=== PATIENT | female | born 1990 | race Caucasian/White ===

== ENCOUNTER → 2017-02-16 | Outpatient (CLI) | payer OTHER ==
[~2017-02-16] MED LIST: DROS3TAB PO; GLC/500 PO; GLIP-199 PO; HYDR1CAP85 PO; LISI2.5T5 PO; ONDA4TAB46 PO; SERT50TA PO
== END | disposition home or self-care (01) ==
LOC: C.PAPS 15:52
PROVIDERS: ATTEND Obstetrics & Gynecology
DX: Z12.4 Encounter for screening for malignant neoplasm of cervix (principal)

== ENCOUNTER → 2017-04-15 | Outpatient (CLI) | payer OTHER ==
[2017-04-15 17:48] LABS: CHOLESTEROL/HDL RATIO 4.8; THYROID STIMULATING HORMONE 1.42 uIu/ml (0.300-4.500)
[2017-04-16 06:18] LABS: ESTIMATED AVERAGE GLUCOSE 237 mg/dl; HA1C FLAG Normal (Normal)
== END | disposition home or self-care (01) ==
LOC: C.LABPBG 15:44
PROVIDERS: ATTEND Physician Assistant
DX: Z00.00 Encounter for general adult medical examination without abnormal findings (principal); E66.01 Morbid (severe) obesity due to excess calories; E11.9 Type 2 diabetes mellitus without complications

== ENCOUNTER 2019-04-25 14:21 | Observation (INO) ==
[2019-04-25] MEDS ORDERED: KETOROLAC TROMETHAMINE 15 MG/ML VIAL IV STA (14:50)
[2019-04-25] MEDS ORDERED: SODIUM CHLORIDE 0.9% 1000ML 1,000 ML IV ONE (14:50)
[2019-04-25] MEDS ORDERED: ONDANSETRON INJ 2 MG/ML 2 ML VIAL IV STA ×2 (14:50→16:39)
[2019-04-25 15:04] LABS: Basophils # (auto) 0.01 K/uL (0-0.2); Basophils % (auto) 0.1 %; Eosinophils # (auto) 0.03 K/uL (0-0.5); Eosinophils % (auto) 0.2 %; Hematocrit (blood only) 39.7 % (37-47); Immature Granulocytes # (auto) 0.05 K/uL (0.00-0.02); Immature Granulocytes % (auto) 0.3 %; Lymphocytes # (auto) 2.11 K/uL (1.2-3.4); Lymphocytes % (auto) 13.3 %; Mean Corpuscular Hemoglobin 25.3 pg (25-34); Mean Corpuscular Hgb Conc 32.7 g/dL (32-36); Mean Corpuscular Volume 77.2 fL (80-100); Mean Platelet Volume 9.5 fL (7.4-10.4); Monocytes # (auto) 0.91 K/uL (0.11-0.59); Monocytes % (auto) 5.7 %; Neutrophils # (auto) 12.79 K/uL (1.4-6.5); Neutrophils % (auto) 80.4 %; Platelet Count 299 K/uL (130-400); RDW Coefficient of Variation 13.9 % (11.5-14.5); RDW Standard Deviation 39.5 fL (36.4-46.3); Red Blood Count 5.14 M/uL (4.2-5.4)
[2019-04-25 15:12] LABS: Alanine Aminotransferase 33 U/L (12-78); Albumin Level 3.5 gm/dl (3.4-5.0); Aspartate Aminotransferase 16 U/L (15-37); BUN Creatinine Ratio 9.7 (10-20); Bilirubin Direct < 0.1 mg/dl (0-0.2); Blood Urea Nitrogen 9 mg/dl (7-18); Calcium 8.7 mg/dl (8.5-10.1); Carbon Dioxide 22 mmol/L (21-32); Chloride 103 mmol/L (98-107); Est GFR (African American) 100.9; Glucose 221 mg/dl (70-99); Lipase 75 U/L (73-393); Potassium 3.8 mmol/L (3.5-5.1); Sodium 134 mmol/L (136-145)
[2019-04-25 15:14] LABS: Alkaline Phosphatase 56 U/L (45-117); Bilirubin,Total 0.5 mg/dl (0.2-1); Total Protein 7.8 gm/dl (6.4-8.2)
[2019-04-25 15:26] LABS: Appearance Urine Cloudy (Clear); Bacteria Urine Automated 3+ (Negative); Bilirubin Urine Negative (Negative); Blood Urine 3+ (Negative); Color Urine Yellow; Epithelial Cell Urine Auto >30 /lpf (0-5); Glucose Urine UA 3+ (Negative); Ketones Urine Negative (Negative); Leukocyte Esterase Urine Trace (Negative); Nitrite Urine Negative (Negative); Protein Urine Negative (Negative); RBC Urine Automated >30 /hpf (0-4); Specific Gravity Urine 1.028 (1.000-1.030); Urobilinogen Urine Negative (Negative); WBC Urine Automated >30 /hpf (0-5)
[2019-04-25] MEDS ORDERED: OPTIRAY 320 125ml IV PRN (15:40)
--- NOTE | 2019-04-25 16:03 | CT Scan Report ---
ABDOMEN AND PELVIS CT WITH IV CONTRAST CT DOSE: 2263.03 mGy.cm HISTORY: Right lower quadrant pain. Assess for appendicitis. TECHNIQUE: Multiaxial CT images of the abdomen and pelvis were performed following the use of intrave nous contrast. A dose lowering technique was utilized adhering to the principles of ALARA. COMPARISON STUDY: Abdomen and pelvis CT 03/09/2019. FINDINGS: The lung bases are essentially clear. No pneumoperitoneum. No pneumatosis. Cholecystectomy. Hepatic steatosis. The pancreas, spleen, adrenal glands, and kidneys are unremarkable. No hydronephr osis. No retroperitoneal lymphadenopathy. Moderate bladder wall thickening. This could be due to unde rdistention. The uterus and bilateral adnexa are unremarkable. Suboptimal evaluation for bowel pathol ogy due to the lack of oral contrast. However, there is no definite bowel wall thickening or obstruct ion. The proximal to mid appendix is identified and within normal limits. The tip of the appendix nghia ears to be obscured by a trace amount of fluid best seen on image [id number] within the right lower quadrant anteriorly. IMPRESSION: 1. The proximal to mid appendix is within normal limits. The tip the appendix appears to be obscured by trace amount of fluid and is therefore indeterminate. Consider repeat abdomen and pelvis CT with o ral and intravenous contrast if the patient's right lower quadrant pain persists or progresses. 2. Moderate bladder wall thickening. This could be due to underdistention. Recommend correlation with urinalysis. 3. Cholecystectomy. 4. Hepatic steatosis. Electronically signed by: Anselmo Barron M.D. 04/25/2019 4:01 PM
[2019-04-25] MEDS ORDERED: cefTRIAXone SODIUM 1,000 MG/50 ML BAG IV STA (16:14)
[2019-04-25] MEDS ORDERED: PIPERACILLIN/TAZOBACTAM 4.5 GM/120 ML BAG IV ONE (16:39)
[2019-04-25] MEDS ORDERED: MoRPHine SULFATE 4 MG/ML 1 ML CARP\\VIAL IV STA (16:41)
--- NOTE | 2019-04-25 17:01 | History & Physical Report ---
Date of Service April 25, 2019 Assessment & Plan (1) Right lower quadrant abdominal pain: This is a 29y F who presents to the [facility] ED today with a 1 day history of right sided lower abdominal pain and nausea. WBC in the ED 15.9 and patient afebrile. Patient does have a history of PCOS with pain in the past from cysts as well as history of UTI's. Patient is tender to palpation in the RLQ, although examination may be limited by body habitus. CT is indeterminate in ruling out appendicitis. At this time we will admit the patient under observation and make her NPO with IV abx. We will consult medicine & pharmacy for assistance managing her other medical issues. I spoke with Dr. Stanley who will come evaluate the patient and will determine if surgical intervention is necessitated vs further imaging vs continue to watch with supportive care. History of Present Illness Primary Care Provider: Kylie Salamanca DO This is a 29y F with a PMH of DM2, morbid obesity, HTN, and PCOS who presents to the [facility] ED on 04/25/19 with complaints of right sided lower abdominal pain and nausea. Patient reports her pain started yesterday and was crampy in nature. She has a history of PCOS and has had pain from cysts in the past, but states that this feels different. She reports that the pain was yesterday was intermittent and she was able to eat at [employer] for dinner. Today the pain and nausea continued to persist and worsen, prompting her to be evaluated in the ED. She endorses chills, diarrhea (starting today, almost hourly), bloating, and lightheadedness. She states the pain is primarily in the right lower abdomen, rating it a 6/10 in severity. She denies fevers, constipation, shortness of breath, vomiting, or chest pain. Patient was evaluated in the ED last month for abdominal pain, but she said that the pain at that time was diffuse and she was diagnosed with a UTI. She does have a UA from today with + leukocytes, WBC, and bacteria. She has feelings of needing to urinate, but denies dysuria or actual urinary frequency. Workup in the ED show a WBC of 15.[address] scan revealed an inadequate evaluation of the appendix due to the tip being obscured by fluid, & also showed some bladder wall thickening. Patient states she last ate spaghettio's around 11am today. Allergies Allergy/AdvReac Type Severity Reaction Status Date / Time hydromorphone Allergy Intermediate HIVES Verified 03/29/19 18:08 adhesive Allergy Mild REDNESS AT Verified 03/29/19 18:08 SITE/ITCHY latex Allergy Mild RASH Verified 03/29/19 18:08 soy Allergy Unknown hives, Verified 03/29/19 18:08 swelling to face. Home Medications Home Medications Medication Instructions Recorded Confirmed Type metformin ER 500 mg 1,000 mg PO BID #360 tab 11/26/18 04/25/19 Rx tablet,extended release 24 hr omeprazole 40 mg capsule,delayed 40 mg PO BID #60 cap 11/26/18 04/25/19 Rx release albuterol sulfate HFA 90 2 puffs INHALATION Q4H PRN gm 01/25/19 04/25/19 History mcg/actuation aerosol inhaler dulaglutide 1.5 mg/0.5 mL 1.5 mg SUBCUT WEEKLY ml 01/25/19 04/25/19 History subcutaneous pen injector ergocalciferol (vitamin D2) 50,000 50,000 units PO WEEKLY cap 01/25/19 04/25/19 History unit capsule hydroxyzine HCl 50 mg tablet 50 mg PO HS PRN 01/25/19 04/25/19 History atorvastatin 10 mg PO HS 03/09/19 04/25/19 History ferrous sulfate 325 mg PO HS 03/09/19 04/25/19 History fluoxetine [Prozac] 40 mg PO HS 03/09/19 04/25/19 History lisinopril 5 mg PO HS 03/09/19 04/25/19 History magnesium oxide 400 mg PO HS 03/09/19 04/25/19 History spironolactone 100 mg PO HS 03/09/19 04/25/19 History buspirone 15 mg tablet 15 mg PO BID 04/05/19 04/25/19 History dicyclomine 10 mg PO Q6H PRN 04/25/19 04/25/19 History norethindrone (contraceptive) 0.35 mg PO HS 04/25/19 04/25/19 History [Elana-BE] Past Med/Surg History Medical History Type 2 diabetes mellitus, uncontrolled Obesity, morbid, BMI 50 or higher Insomnia IBS (irritable bowel syndrome) Hypertension Hypercholesterolemia with hyperglyceridemia GERD without esophagitis Depression Anxiety History of cellulitis right thigh History of methicillin resistant Staphylococcus aureus infection History of pneumonia Suicide ideation Surgical History History of cholecystectomy History of incision and drainage Family History Mother Depression Anxiety Methicillin resistant Staphylococcus aureus infection Father Obstructive sleep apnea Sleep apnea Methicillin resistant Staphylococcus aureus infection Brother Obstructive sleep apnea Sleep apnea Methicillin resistant Staphylococcus aureus infection Family/Other Asthma Methicillin resistant Staphylococcus aureus infection Grandmother (Maternal) Diabetes Heart disease Grandfather (Paternal) Diabetes Lung cancer Other Coronary heart disease Social History Preferred Language: Mohawk Communication Ability: Effective Visual Impairment: No Limitations Hearing Ability: Normal Beliefs That Will Affect Care: None marital status: Single Current Living Situation: Alone current occupational status: employed current occupation: Daycare in [employer] Other Information That Helps Us Care for You: No Feels Safe at Home: Yes Safety Concerns: Feels Safe At This Time Smoking Status: Never smoker Second Hand Exposure: No ; Hx Alcohol Use: Yes Alcohol Intake Frequency: Rarely Hx Substance Use: No Childhood Exposure to Second-Hand Smoke: No caffeine: Yes Dental Care, Regularly: Yes Physical Activity Frequency: 1-2 Times per Week Seatbelt Use: always Review of Systems Constitutional: + chills; no fever Respiratory: no shortness of breath Cardiovascular: no chest pain Gastrointestinal: + abdominal pain (right lower abdomen), + bloating, + nausea, + cramping and + diarrhea/loose stools; no vomiting and no constipation Genitourinary: no dysuria and no urinary hesitancy feelings of needing to void frequently Physical Exam Physical Exam: awake/alert/reading a book Constitutional: well developed, well nourished, + morbidly obese and cooperative; no acute distress Respiratory: normal respiratory effort Cardiovascular: Rate/Rhythm: + tachycardic Gastrointestinal (Abdomen): Inspection/Auscultation: + abdominal surgical scar (from previous laparoscopic cholecystectomy-2005) Percussion/Palpation: + abdomen tender (difficult to examine due to body habitus, but endorses ttp in RLQ) and abdomen soft Results & Data Vital Signs (Past 12 Hours) Vital Signs Temp Pulse Pulse Resp BP BP Pulse Ox 04/25/19 16:37 107 H 20 154/94 H 98 04/25/19 15:05 93 H 20 159/102 H 97 04/25/19 14:27 36.7 C 122 H 20 155/88 H [address] WITH IV CONTRAST CT DOSE: 2263.03 mGy.cm HISTORY: Right lower quadrant pain. Assess for appendicitis. TECHNIQUE: Multiaxial CT images of the abdomen and pelvis were performed following the use of intravenous contrast. A dose lowering technique was utilized adhering to the principles of ALARA. COMPARISON STUDY: Abdomen and pelvis CT 03/09/2019. FINDINGS: The lung bases are essentially clear. No pneumoperitoneum. No pneumatosis. Cholecystectomy. Hepatic steatosis. The pancreas, spleen, adrenal glands, and kidneys are unremarkable. No hydronephrosis. No retroperitoneal lymphadenopathy. Moderate bladder wall thickening. This could be due to underdistention. The uterus and bilateral adnexa are unremarkable. Suboptimal evaluation for bowel pathology due to the lack of oral contrast. However, there is no definite bowel wall thickening or obstruction. The proximal to mid appendix is identified and within normal limits. The tip of the appendix appears to be obscured by a trace amount of fluid best seen on image [id number] within the right lower quadrant anteriorly. IMPRESSION: 1. The proximal to mid appendix is within normal limits. The tip the appendix appears to be obscured by trace amount of fluid and is therefore indeterminate. Consider repeat abdomen and pelvis CT with oral and intravenous contrast if the patient's right lower quadrant pain persists or progresses. 2. Moderate bladder wall thickening. This could be due to underdistention. Recommend correlation with urinalysis. 3. Cholecystectomy. 4. Hepatic steatosis. Electronically signed by: Anselmo Barron M.D. 04/25/2019 4:01 PM Code Status & VTE Plan VTE Prophylaxis Plan VTE Prophylaxis will be ordered: Yes Supervising Physician Co-Signing Physician Notes Patient was seen in the presence of her family stating that she was admitted here proximally a month or so ago with similar abdominal pain although on the opposite side she initially thought that this may been a cyst since he had some gynecological problems at this time the patient had some nausea this morning and some abdominal pain that started in her right lower quadrant around noontime she had spaghetti O and at the present time he states that her nausea is pretty much gone On exam the patient is sitting in bed in no distress visiting with her family The sclera no conjunctival injection the abdomen obese large panniculus to her upper thigh she does not pinpoint direct pain in the right lower quadrant on exam her pain is pretty much from the symphysis pubis almost to the right flank area in summary she is not localized rest of her abdomen is completely benign At this point discussed with the patient and her family that I would favor just watching her see how she does clinically she does have a UTI and if tomorrow she still has persistent pain then we will obtain a CT scan with oral contrast At this time no true definitive indication to proceed with laparoscopic appendectomy possible open Her weight is noted PG Care Time/CCT Total # of Minutes Spent Total Time Spent with Patient: Total time spent is greater than 50% in coordination of care (as documented) at patient's floor/unit and/or counseling patient:
--- NOTE | 2019-04-25 17:57 | Emergency Department Note ---
Entered by Marina Rodriguez acting as a scribe for Vinayak Fair History of Present Illness General Chief complaint: Diarrhea Stated complaint: ABDOMINAL PAIN,NAUSEA,CHILLS Time Seen by Provider: 04/25/19 14:43 Source: patient History of Present Illness Onset (ago): day(s) (last night) Location: abdomen Pain Consistency: + other (episode) Maximum Pain Intensity: 6 Quality: + other (abdominal pain ) Associated symptoms: + nausea/vomiting (-vomiting ) The patient is a 29 year old female, with past medical history of diabetes, IBS, depression, and PCOS, who presents to the Emergency Room with complaints of an episode of abdominal pain that started last night. Pain is located in the right lower quadrant. The patient thought she originally thought her symptoms stemmed from PCOS, but she states it feels different today than her past PCOS symptoms. The patient notes she is on BCPs, but she states that there is no chance shes . The patient reports of nausea. The patient also reports she had her period over the last couple of days. The patient notes she has had her gallbladder removed. Home Medications Home Medications Medication Instructions Recorded Confirmed Type metformin ER 500 mg 1,000 mg PO BID #360 tab 11/26/18 04/25/19 Rx tablet,extended release 24 hr omeprazole 40 mg capsule,delayed 40 mg PO BID #60 cap 11/26/18 04/25/19 Rx release albuterol sulfate HFA 90 2 puffs INHALATION Q4H PRN gm 01/25/19 04/25/19 History mcg/actuation aerosol inhaler dulaglutide 1.5 mg/0.5 mL 1.5 mg SUBCUT WEEKLY ml 01/25/19 04/25/19 History subcutaneous pen injector ergocalciferol (vitamin D2) 50,000 50,000 units PO WEEKLY cap 01/25/19 04/25/19 History unit capsule hydroxyzine HCl 50 mg tablet 50 mg PO HS PRN 01/25/19 04/25/19 History atorvastatin 10 mg PO HS 03/09/19 04/25/19 History ferrous sulfate 325 mg PO HS 03/09/19 04/25/19 History fluoxetine [Prozac] 40 mg PO HS 03/09/19 04/25/19 History lisinopril 5 mg PO HS 03/09/19 04/25/19 History magnesium oxide 400 mg PO HS 03/09/19 04/25/19 History spironolactone 100 mg PO HS 03/09/19 04/25/19 History buspirone 15 mg tablet 15 mg PO BID 04/05/19 04/25/19 History dicyclomine 10 mg PO Q6H PRN 04/25/19 04/25/19 History norethindrone (contraceptive) 0.35 mg PO HS 04/25/19 04/25/19 History [Elana-BE] Allergies Allergy/AdvReac Type Severity Reaction Status Date / Time hydromorphone Allergy Intermediate HIVES Verified 03/29/19 18:08 adhesive Allergy Mild REDNESS AT Verified 03/29/19 18:08 SITE/ITCHY latex Allergy Mild RASH Verified 03/29/19 18:08 soy Allergy Unknown hives, Verified 03/29/19 18:08 swelling to face. Past Med/Surg History Medical History Type 2 diabetes mellitus, uncontrolled Obesity, morbid, BMI 50 or higher Insomnia IBS (irritable bowel syndrome) Hypertension Hypercholesterolemia with hyperglyceridemia GERD without esophagitis Depression Anxiety History of cellulitis right thigh History of methicillin resistant Staphylococcus aureus infection History of pneumonia Suicide ideation Surgical History History of cholecystectomy History of incision and drainage Family History Mother Depression Anxiety Methicillin resistant Staphylococcus aureus infection Father Obstructive sleep apnea Sleep apnea Methicillin resistant Staphylococcus aureus infection Brother Obstructive sleep apnea Sleep apnea Methicillin resistant Staphylococcus aureus infection Family/Other Asthma Methicillin resistant Staphylococcus aureus infection Grandmother (Maternal) Diabetes Heart disease Grandfather (Paternal) Diabetes Lung cancer Other Coronary heart disease Social History Preferred Language: Yi Communication Ability: Effective Visual Impairment: No Limitations Hearing Ability: Normal Beliefs That Will Affect Care: None marital status: Single Current Living Situation: Alone current occupational status: employed current occupation: Daycare in [employer] Other Information That Helps Us Care for You: No Feels Safe at Home: Yes Safety Concerns: Feels Safe At This Time Smoking Status: Never smoker Second Hand Exposure: No ; Hx Alcohol Use: Yes Alcohol Intake Frequency: Rarely Hx Substance Use: No Childhood Exposure to Second-Hand Smoke: No caffeine: Yes Dental Care, Regularly: Yes Physical Activity Frequency: 1-2 Times per Week Seatbelt Use: always Review of Systems See HPI for pertinent positives & negatives. and A total of 10 systems reviewed and were otherwise negative Physical Exam Vital Signs Vital Signs - 24 hr 04/25/19 14:27 04/25/19 15:05 04/25/19 16:37 Temperature 36.7 C Temperature Source Oral Sepsis Recent Fever Within 48 Hours No Sepsis New/Unexplained Change in Mental Status No Sepsis Action Taken by Nursing No Action Required Pulse Rate 122 H Pulse Rate [Finger] 93 H 107 H Respiratory Rate 20 20 20 Respiratory Effort / Characteristics Non-Labored Respiratory Depth Normal Respiratory Pattern Regular Blood Pressure 155/88 H Blood Pressure [Right Arm] 159/102 H 154/94 H Blood Pressure Mean 110 Blood Pressure Mean [Right Arm] 121 114 Blood Pressure Position Sitting Pulse Oximetry 98 97 98 Oxygen Delivery Method Room Air Room Air Room Air GENERAL: She is oriented to person, place, and time. She appears well-developed and morbidly obese. She does not appear distressed. HENT: Exam performed. -Head: Normocephalic and atraumatic. -Right Ear: External ear normal. No mastoid tenderness. -Left Ear: External ear normal. No mastoid tenderness. -Mouth/Throat: The oropharynx is clear and moist. No trismus in the jaw. No dental abscesses or uvula swelling. No oropharyngeal exudate or tonsillar abscesses. EYES: Conjunctivae and EOM are normal. Pupils are equal, round, and reactive to light. Right eye exhibits no discharge. Left eye exhibits no discharge. No scleral icterus. NECK: Normal range of motion. Neck supple. No JVD present. No spinous process t enderness present. No carotid bruit present. No rigidity. No tracheal deviation and normal range of motion present. No Brudzinski's sign and no Kernig's sign noted. CV: Normal rate, regular rhythm, normal heart sounds and intact distal pulses. There is no peripheral edema. Palpable radial pulses bue. PULM/CHEST: Effort normal and breath sounds normal. No respiratory distress. No stridor. She has no wheezes. She has no rales. Chest Wall: She exhibits no tenderness. ABD: The abdomen is soft. Bowel sounds are normal. She has no distension. No mass is present. There is pain on palpation to right lower quadrant. There is no rebound, no guarding, no Hoyos's sign and no tenderness at McBurney's point. Rovsig negative MUSC/SKEL: Normal range of motion. There is no peripheral edema, tenderness or deformity. LYMPH: No cervical adenopathy. NEURO: She is alert and oriented to person, place, and time. She has normal strength. No cranial nerve deficit or sensory deficit. Coordination and gait normal. GCS eye subscore is 4. GCS verbal subscore is 5. GCS motor subscore is 6. cerbellar tests wnl. SKIN: Skin is warm and dry. She is not diaphoretic. PSYCH: She has a normal mood and affect. Her behavior is normal. Judgment and thought content normal. Course 1552: Past medical records reviewed. The patient was evaluated in room A2. A complete history and physical exam was performed. 1609: Vital signs are stable. Lab showed leukocytes of 15. CT showed possible appendicitis. The patient still reports of pain to abdomen. I will consult surgery to evaluate her. 1613: I discussed the patient's case with [facility]. Jd states that she will come down to evaluate the patient. I gave the patient a dose of Rocephin to monitor the patient's possible appendicitis. 1639: I discussed the patient's case with [facility]. She states Dr. Wilson Surgery will further evaluate the patient. Dr. Stanley requests the patient gets a dose of Zosyn. Consultations Consultation #1: I discussed the patient's case with [facility]. Jd states that she will come down to evaluate the patient. Time: 16:13 Consultation #2: I discussed the patient's case with [facility]. She states Dr. Wilson Surgery will further evaluate the patient. Dr. Stanley requests the patient gets a dose of Zosyn. Time: 16:39 Administered Medications Piperacillin Sod/Tazobactam Sod (Zosyn) 4.5 gm in 120 mls @ 30 mls/hr IV NOW ONE Stop: 04/25/19 20:38 Last Admin: 04/25/19 16:49 Dose: 30 mls/hr Documented by: [id number] Ioversol (Optiray 320 125ml) 119 ml IV ONCE PRN PRN Reason: Interaction Checking Stop: 04/29/19 15:39 Last Admin: 04/25/19 15:40 Dose: 119 ml Documented by: [id number] Discontinued Medications Sodium Chloride (Nss 1000ml) 1,000 mls @ 999 mls/hr IV .Q1H1M ONE Stop: 04/25/19 15:50 Last Infusion: 04/25/19 16:09 Dose: 0 mls/hr Documented by: [id number] Admin: 04/25/19 15:03 Dose: 999 mls/hr Documented by: [id number] Ceftriaxone Sodium (Rocephin) 1,000 mg in 50 mls @ 100 mls/hr IV NOW STA Stop: 04/25/19 16:43 Last Admin: 04/25/19 17:15 Dose: 100 mls/hr Documented by: [id number] Ketorolac Tromethamine (Toradol) 15 mg IV NOW STA Stop: 04/25/19 14:51 Last Admin: 04/25/19 15:03 Dose: 15 mg Documented by: [id number] Morphine Sulfate (Morphine Sulfate) 8 mg IV NOW STA Stop: 04/25/19 16:42 Last Admin: 04/25/19 16:48 Dose: 8 mg Documented by: [id number] Ondansetron HCl (Zofran) 4 mg IV NOW STA Stop: 04/25/19 14:51 Last Admin: 04/25/19 15:03 Dose: 4 mg Documented by: [id number] Ondansetron HCl (Zofran) 4 mg IV NOW STA Stop: 04/25/19 16:40 Last Admin: 04/25/19 16:49 Dose: 4 mg Documented by: [id number] Medical Decision Making Medical Records Attestation: I reviewed the patient's medical records. Home Medications Current Medication List: was personally reviewed by me Laboratory Data Attestation: I reviewed the patient's lab results. Result diagrams: 04/25/19 14:44 04/25/19 14:44 Lab Results 04/25/19 04/25/19 04/25/19 Range/Units 14:40 14:40 14:44 WBC 15.90 H (4.8-10.8) K/uL RBC 5.14 (4.2-5.4) M/uL Hgb 13.0 (12.0-16.0) g/dL Hct 39.7 (37-47) % MCV 77.2 L (80-100) fL MCH 25.3 (25-34) pg MCHC 32.7 (32-36) g/dL RDW Std Deviation 39.5 (36.4-46.3) fL RDW Coeff of Monserrat 13.9 (11.5-14.5) % Plt Count 299 (130-400) K/uL MPV 9.5 (7.4-10.4) fL Immature Gran % (Auto) 0.3 % Neut % (Auto) 80.4 % Lymph % (Auto) 13.3 % Ector % (Auto) 5.7 % Eos % (Auto) 0.2 % Baso % (Auto) 0.1 % Immature Gran # (Auto) 0.05 H (0.00-0.02) K/uL Neut # (Auto) 12.79 H (1.4-6.5) K/uL Lymph # (Auto) 2.11 (1.2-3.4) K/uL Ector # (Auto) 0.91 H (0.11-0.59) K/uL Eos # (Auto) 0.03 (0-0.5) K/uL Baso # (Auto) 0.01 (0-0.2) K/uL Sodium (136-145) mmol/L Potassium (3.5-5.1) mmol/L Chloride (98-107) mmol/L Carbon Dioxide (21-32) mmol/L Anion Gap (3-11) BUN (7-18) mg/dl Creatinine (0.6-1.2) mg/dl Est Cr Clr Drug Dosing ml/min Est GFR ( Amer) Est GFR (Non-Af Amer) BUN/Creatinine Ratio (10-20) Glucose (70-99) mg/dl Calcium (8.5-10.1) mg/dl Total Bilirubin (0.2-1) mg/dl Direct Bilirubin (0-0.2) mg/dl AST (15-37) U/L ALT (12-78) U/L Alkaline Phosphatase (45-117) U/L Total Protein (6.4-8.2) gm/dl Albumin (3.4-5.0) gm/dl Lipase (73-393) U/L Urine Color Yellow Urine Appearance Cloudy A (Clear) Urine pH 5.0 (4.5-7.5) Ur Specific Savage 1.028 (1.000-1.030) Urine Protein Negative (Negative) Urine Glucose (UA) 3+ H (Negative) Urine Ketones Negative (Negative) Urine Blood 3+ H (Negative) Urine Nitrite Negative (Negative) Urine Bilirubin Negative (Negative) Urine Urobilinogen Negative (Negative) Ur Leukocyte Esterase Trace H (Negative) Urine WBC (Auto) >30 H (0-5) /hpf Urine RBC (Auto) >30 H (0-4) /hpf U Hyaline Cast (Auto) 1-5 (0-5) /lpf U Epithel Cells (Auto) >30 H (0-5) /lpf Urine Bacteria (Auto) 3+ H (Negative) POC Ur Test NEG (NEG) 04/25/19 Range/Units 14:44 WBC (4.8-10.8) K/uL RBC (4.2-5.4) M/uL Hgb (12.0-16.0) g/dL Hct (37-47) % MCV (80-100) fL MCH (25-34) pg MCHC (32-36) g/dL RDW Std Deviation (36.4-46.3) fL RDW Coeff of Monserrat (11.5-14.5) % Plt Count (130-400) K/uL MPV (7.4-10.4) fL Immature Gran % (Auto) % Neut % (Auto) % Lymph % (Auto) % Ector % (Auto) % Eos % (Auto) % Baso % (Auto) % Immature Gran # (Auto) (0.00-0.02) K/uL Neut # (Auto) (1.4-6.5) K/uL Lymph # (Auto) (1.2-3.4) K/uL Ector # (Auto) (0.11-0.59) K/uL Eos # (Auto) (0-0.5) K/uL Baso # (Auto) (0-0.2) K/uL Sodium 134 L (136-145) mmol/L Potassium 3.8 (3.5-5.1) mmol/L Chloride 103 (98-107) mmol/L Carbon Dioxide 22 (21-32) mmol/L Anion Gap 9.0 (3-11) BUN 9 (7-18) mg/dl Creatinine 0.90 (0.6-1.2) mg/dl Est Cr Clr Drug Dosing 146.0 ml/min Est GFR ( Amer) 100.9 Est GFR (Non-Af Amer) 87.0 BUN/Creatinine Ratio 9.7 L (10-20) Glucose 221 H (70-99) mg/dl Calcium 8.7 (8.5-10.1) mg/dl Total Bilirubin 0.5 (0.2-1) mg/dl Direct Bilirubin < 0.1 (0-0.2) mg/dl AST 16 (15-37) U/L ALT 33 (12-78) U/L Alkaline Phosphatase 56 (45-117) U/L Total Protein 7.8 (6.4-8.2) gm/dl Albumin 3.5 (3.4-5.0) gm/dl Lipase 75 (73-393) U/L Urine Color Urine Appearance (Clear) Urine pH (4.5-7.5) Ur Specific Savage (1.000-1.030) Urine Protein (Negative) Urine Glucose (UA) (Negative) Urine Ketones (Negative) Urine Blood (Negative) Urine Nitrite (Negative) Urine Bilirubin (Negative) Urine Urobilinogen (Negative) Ur Leukocyte Esterase (Negative) Urine WBC (Auto) (0-5) /hpf Urine RBC (Auto) (0-4) /hpf U Hyaline Cast (Auto) (0-5) /lpf U Epithel Cells (Auto) (0-5) /lpf Urine Bacteria (Auto) (Negative) POC Ur Test (NEG) Imaging Data Radiologist's Impression: Radiology results as stated below per my review and the radiologist's interpretation: ABDOMEN AND PELVIS CT WITH IV CONTRAST CT DOSE: 2263.03 mGy.cm HISTORY: Right lower quadrant pain. Assess for appendicitis. TECHNIQUE: Multiaxial CT images of the abdomen and pelvis were performed following the use of intravenous contrast. A dose lowering technique was utilized adhering to the principles of ALARA. COMPARISON STUDY: Abdomen and pelvis CT 03/09/2019. FINDINGS: The lung bases are essentially clear. No pneumoperitoneum. No pneumatosis. Cholecystectomy. Hepatic steatosis. The pancreas, spleen, adrenal glands, and kidneys are unremarkable. No hydronephrosis. No retroperitoneal lymphadenopathy. Moderate bladder wall thickening. This could be due to underdistention. The uterus and bilateral adnexa are unremarkable. Suboptimal evaluation for bowel pathology due to the lack of oral contrast. However, there is no definite bowel wall thickening or obstruction. The proximal to mid appendix is identified and within normal limits. The tip of the appendix appears to be obscured by a trace amount of fluid best seen on image [id number] within the right lower quadrant anteriorly. IMPRESSION: 1. The proximal to mid appendix is within normal limits. The tip the appendix appears to be obscured by trace amount of fluid and is therefore indeterminate. Consider repeat abdomen and pelvis CT with oral and intravenous contrast if the patient's right lower quadrant pain persists or progresses. 2. Moderate bladder wall thickening. This could be due to underdistention. Recommend correlation with urinalysis. 3. Cholecystectomy. 4. Hepatic steatosis. Electronically signed by: Anselmo Barron M.D. 04/25/2019 4:01 PM Blood Pressure Blood Pressure Findings: Elevated blood pressure Blood Pressure Disposition: further management by hospitalist ELIZABETH Narrative 1552: Past medical records reviewed. The patient was evaluated in room A2. A complete history and physical exam was performed. 1609: Vital signs are stable. Lab showed leukocytes of 15. CT showed possible appendicitis. The patient still reports of pain to abdomen. I will consult surgery to evaluate her. 1613: I discussed the patient's case with [facility]. Jd states that she will come down to evaluate the patient. I gave the patient a dose of Rocephin to monitor the patient's possible appendicitis. 1639: I discussed the patient's case with [facility]. She states Dr. Stanley- Surgery will further evaluate the patient. Dr. Stanley requests the patient gets a dose of Zosyn. Impression & Plan Right lower quadrant abdominal pain Discharge Plan Visit Data Chief Complaint: Diarrhea Stated Complaint: ABDOMINAL PAIN,NAUSEA,CHILLS ED Provider: Vinayak Fair Discharge Problem: Right lower quadrant abdominal pain Patient Disposition: Being Evaluated by Surgeon Forms Stand Alone Forms: My [facility] Prescriptions Prescriptions: No Action metformin 500 mg tablet extended release 24 hr 1,000 mg PO BID Qty: 360 RF: 3 omeprazole 40 mg capsule,delayed release(DR/EC) 40 mg PO BID Qty: 60 RF: 5 buspirone 15 mg tablet 15 mg PO BID RF: 0 albuterol sulfate 90 mcg/actuation HFA aerosol inhaler 2 puffs inhalation Q4H PRN (Reason: Shortness Of Breath Or Wheezing) RF: 0 ergocalciferol (vitamin D2) 50,000 unit capsule 50,000 units PO WEEKLY RF: 0 hydroxyzine HCl 50 mg tablet 50 mg PO HS PRN (Reason: Anxiety) RF: 0 dulaglutide 1.5 mg/0.5 mL pen injector 1.5 mg subcut WEEKLY RF: 0 fluoxetine [Prozac] 40 mg capsule 40 mg PO HS RF: 0 atorvastatin 10 mg tablet 10 mg PO HS RF: 0 spironolactone 100 mg tablet 100 mg PO HS RF: 0 magnesium oxide 400 mg (241.3 mg magnesium) tablet 400 mg PO HS RF: 0 lisinopril 5 mg tablet 5 mg PO HS RF: 0 ferrous sulfate 325 mg (65 mg iron) tablet,delayed release (DR/EC) 325 mg PO HS RF: 0 norethindrone (contraceptive) [Elana-BE] 0.35 mg tablet 0.35 mg PO HS RF: 0 dicyclomine 10 mg capsule 10 mg PO Q6H PRN (Reason: Abdominal Pain/IBS) RF: 0 Referrals Referrals: Kylie Salamanca DO [Primary Care Provider] - The scribe's documentation has been prepared under my direction and personally reviewed by me in its entirety. I confirm that the note above accurately reflects all work, treatment, procedures, and medical decision making performed by me.
[2019-04-25] MEDS ORDERED: PNEUMOCOCCAL POLYSACCHARIDES 25 MCG/0.5 ML VIAL/SYR IM ONE (18:15)
[2019-04-25] MEDS ORDERED: PNEUMOCOCCAL ADMINISTRATION CHARGE ONE (18:15)
[2019-04-25] MEDS ORDERED: ONDANSETRON INJ 2 MG/ML 2 ML VIAL IV PRN (18:55)
[2019-04-25] MEDS ORDERED: ALBUTEROL HFA 8 GM INHALER INH PRN (18:55)
[2019-04-25] MEDS ORDERED: PIPERACILL/TAZOBAC CONSULT ACTIVE PRN (18:55)
[2019-04-25] MEDS ORDERED: ACETAMINOPHEN 325 MG TAB PO PRN (18:55)
[2019-04-25] MEDS ORDERED: MoRPHine SULFATE 4 MG/ML 1 ML CARP\\VIAL IV PRN ×2 (18:55)
[2019-04-25] MEDS ORDERED: PHARMACY GLYCEMIC MGMT CONSULT PRN (19:07)
[2019-04-25] MEDS: SODIUM CHLORIDE 0.9% 1000ML 1,000 ML IV SCH (20:30)
[2019-04-25] MEDS: INSULIN ASPART 100 UNITS/ML 3 ML PEN SC SCH (21:00)
[2019-04-25] MEDS: FLUOXETINE HCL 20 MG CAP PO SCH (21:03)
[2019-04-25] MEDS: BusPIRone 15 MG TAB PO SCH (21:03)
[2019-04-25] MEDS: PANTOprazole 40 MG TAB PO SCH (21:03)
[2019-04-26] MEDS: PIPERACILLIN/TAZOBACTAM 4.5 GM in DEXTROSE 5% 100 ML IV SCH ×2 (00:03→07:54)
[2019-04-26] MEDS: INSULIN ASPART 100 UNITS/ML 3 ML PEN SC SCH ×3 (00:10→13:12)
[2019-04-26] MEDS: MoRPHine SULFATE 2 MG/ML CARP IV PRN ×3 (02:46→13:59)
[2019-04-26] MEDS: SODIUM CHLORIDE 0.9% 1000ML 1,000 ML IV SCH ×2 (04:58→12:22)
[2019-04-26 05:48] LABS: Basophils # (auto) 0.02 K/uL (0-0.2); Basophils % (auto) 0.3 %; Eosinophils # (auto) 0.03 K/uL (0-0.5); Eosinophils % (auto) 0.5 %; Hematocrit (blood only) 34.8 % (37-47); Hemoglobin 11.2 g/dL (12.0-16.0); Immature Granulocytes # (auto) 0.01 K/uL (0.00-0.02); Immature Granulocytes % (auto) 0.2 %; Lymphocytes # (auto) 1.59 K/uL (1.2-3.4); Lymphocytes % (auto) 26.5 %; Mean Corpuscular Hgb Conc 32.2 g/dL (32-36); Mean Corpuscular Volume 77.7 fL (80-100); Mean Platelet Volume 8.7 fL (7.4-10.4); Monocytes # (auto) 0.71 K/uL (0.11-0.59); Monocytes % (auto) 11.8 %; Neutrophils # (auto) 3.65 K/uL (1.4-6.5); Neutrophils % (auto) 60.7 %; Platelet Count 225 K/uL (130-400); RDW Coefficient of Variation 14.1 % (11.5-14.5); RDW Standard Deviation 40.1 fL (36.4-46.3); Red Blood Count 4.48 M/uL (4.2-5.4); White Blood Count 6.01 K/uL (4.8-10.8)
[2019-04-26 06:17] LABS: BUN Creatinine Ratio 9.7 (10-20); Calcium 7.7 mg/dl (8.5-10.1); Creatinine Clr Calc Pharmacy 152.7 ml/min; Est GFR (African American) 106.6; Est GFR (Non-African American) 91.9; Potassium 3.5 mmol/L (3.5-5.1)
[2019-04-26 06:23] LABS: Estimated Average Glucose 206 mg/dl; Hemoglobin A1C 8.8 % (4.5-5.6)
--- NOTE | 2019-04-26 07:12 | Surgery Progress Note ---
Date of Service April 26, 2019 Assessment & Plan (1) Right lower quadrant abdominal pain: 04/26/19 Laboratory showed a white count is normal left shift is nonexistent her abdominal pain is still not localized at this point we will proceed with CT scan of the abdomen and pelvis with and without oral and IV contrast patient is agreeable to this This is a 29y F who presents to the [facility] ED today with a 1 day history of right sided lower abdominal pain and nausea. WBC in the ED 15.9 and patient afebrile. Patient does have a history of PCOS with pain in the past from cysts as well as history of UTI's. Patient is tender to palpation in the RLQ, although examination may be limited by body habitus. CT is indeterminate in ruling out appendicitis. At this time we will admit the patient under observation and make her NPO with IV abx. We will consult medicine & pharmacy for assistance managing her other medical issues. I spoke with Dr. Stanley who will come evaluate the patient and will determine if surgical intervention is necessitated vs further imaging vs continue to watch with supportive care. Subjective Patient is sleeping comfortably on awakening her he states that she still has some belly pain in the right lower quadrant no further nausea Physical Exam Physical Exam: The abdomen is unchanged the right lower quadrant pain is not localized she has some discomfort in the left lower quadrant Results & Data Vital Signs (Past 12 Hours) Vital Signs Temp Pulse Resp BP Pulse Ox 04/25/19 23:55 37.4 C 109 H 18 113/72 96 PG Care Time/CCT Total # of Minutes Spent Total Time Spent with Patient: Total time spent is greater than 50% in coordination of care (as documented) at patient's floor/unit and/or counseling patient:
[2019-04-26] MEDS: BusPIRone 15 MG TAB PO SCH (08:00)
[2019-04-26] MEDS: FLUOXETINE HCL 20 MG CAP PO SCH (08:00)
[2019-04-26] MEDS: PANTOprazole 40 MG TAB PO SCH (08:00)
[2019-04-26] MEDS ORDERED: OPTIRAY 320 125ml IV PRN (09:27)
--- NOTE | 2019-04-26 10:18 | CT Scan Report ---
CT OF THE ABDOMEN AND PELVIS WITH CONTRAST CLINICAL HISTORY: possible appendicitis COMPARISON STUDY: CT of the abdomen and pelvis April 25, 2019. TECHNIQUE: Following IV administration of 119 mL of Optiray-320, axial images of the abdomen and pelv is were obtained from the lung bases to the proximal femurs. Images were reviewed in the axial, sagit lexi, and coronal planes. IV contrast was administered without complication. Automated exposure contr ol was utilized for the study. A dose lowering technique was utilized adhering to the principles of ALARA. Oral contrast was administered. CT DOSE: 2345.93 mGy.cm FINDINGS: Lung bases are clear. No pneumatosis, free air or portal venous gas is present. There is fa tty infiltration of the liver and mild hepatomegaly. There is no biliary ductal dilatation status pos t cholecystectomy. The adrenal glands, kidneys and pancreas are normal. There is no evidence for a claire wel obstruction. The appendix is normal caliber and filled with oral contrast. There is no evidence f or acute appendicitis. Caliber and wall thickness of small and large bowel are normal. The ovaries ar e not enlarged. There is no hydronephrosis. Nephrograms are symmetric. No lymphadenopathy is present. There are no suspicious osseous lesions. IMPRESSION: 1. No acute process within the abdomen or pelvis. Normal appendix. No bowel obstruction. 2. Fatty infiltration of the liver. 3. Mild splenomegaly. Electronically signed by: Winston Gilliam M.D. 04/26/2019 10:17 AM
--- NOTE | 2019-04-26 11:28 | Pharmacy Report ---
Glycemic Control Consultation - Date of Service April 26, 2019 - Scope Scope: Glycemic Pharmacist consulted by Santa Valente PA-C on 04/25/19 for glycemic control and to write orders per [facility] inpatient glycemic control protocol - Objective Weight: 155.9 kg Accuchecks BSG (last 24hrs): 04/25/19 04/25/19 04/25/19 14:44 21:06 23:51 Glucose 221 H POC Glucose 104 H 112 H 04/26/19 04/26/19 05:23 05:37 Glucose 115 H POC Glucose 109 H Laboratory Data (last 24hrs): 04/25/19 04/26/19 14:44 05:23 Potassium 3.8 3.5 Carbon Dioxide 22 28 Anion Gap 9.0 5.0 Creatinine 0.90 0.86 Est Cr Clr Drug Dosing 146.0 152.7 HbA1c: Hemoglobin A1c 8.8 % (4.5-5.6) H 04/26/19 05:23 - Recent Pertinent Medications Outpatient Anti-diabetic Regimen: * Dulaglutide 1.5 mg weekly on Thursday * Metformin 1 g PO BIDM * A1c = 8.8 % (04/26/19) Risk Factors for Insulin Resistance: * Infection: receiving empiric Zosyn for possible gastrointestinal infection * IVF: 0.9% NS @125 mL/hr * Diet: NPO -> advanced to Type 2 DM for lunch today - Assessment & Plan Assessment & Plan: ASSESSMENT: * MD is a 29 year old female who presents with complaints of right lower quadrant abdominal pain * PMH includes PCOS, hypertension, hyperlipidemia, obesity (BMI > 50), IBS, hx of UTI, hx of cholecystectomy * BSGs yesterday on admission was 221 mg/dL (unsure of when patient last ate) * Since then BSGs ranging 104-115 mg/dL while NPO * Diet advanced to Type 2 DM diet today with lunch PLAN FOR INPATIENT GLYCEMIC CONTROL: * Consult discontinued by request of hospitalist. Hospitalist to take over glycemic management. * Please note that the plan above was derived based on current level of insulin resistance and hospital stress. These recommendations are appropriate for inpatient admission only. Plan of care upon discharge will need to be reassessed to avoid potential outpatient hypo/hyperglycemia. Thank you.
[2019-04-26] MEDS ORDERED: INSULIN ASPART 100 UNITS/ML 3 ML PEN SC SCH ×2 (13:16→16:30)
[2019-04-26] MEDS ORDERED: OXYCODONE/ACETAMINOPHEN 5mg/325mg TAB PO PRN ×2 (13:59)
[2019-04-26] MEDS ORDERED: LISINOPRIL 10 MG TAB PO SCH ×2 (15:00)
[2019-04-26] MEDS ORDERED: Nursing to Pharmacy Communication ONE (15:08)
--- NOTE | 2019-04-26 15:11 | Hospitalist Consultation ---
Date of Consultation April 26, 2019 Assessment & Plan (1) Right lower quadrant abdominal pain: - Initial leukocytosis on admission which has resolved; Repeat CT without acute findings - Possibly pain is UTI? she reports having some diarrhea but appears to have a relative amount of stool on initial CT and given IBS history maybe has some hardened stool creating some of her discomfort? -- If tolerating diet possibly a laxative approach may help? - Gen Surg as primary Patient is stable from a chronic medical perpective. Glycemic management is monitor glucose control in-house. At this time, hospitalist service will sign- off. Please do not hesitate to contact us for questions or changes in medical status. Present on Admission?: Yes (2) Type 2 diabetes mellitus, uncontrolled: - A1c is 8.8 - Takes Metformin and Trulicity at home - follows with primary care provider - Glycemic management following - recommend continuation of home regimen on D/C - close follow-up with PCP for further adjustments and recommend dietary/exercise management in addition - unfortunately PCOS playing a role in metabolics (3) Hypertension: - STABLE - Continue Lisinopril 5 mg HS Supervising Physician Co-Signing Physician Notes Patient seen and examined with Deloris DELCID. I agree with her exam findings, review of systems, assessment and plan. I personally reviewed the lab work and imaging as well. patient admitted by surgery, no evidence of appendicitis. she does have evidence of UTI. she is feeling better overall, ready to go home - UTI: recommend d/c home on antibiotics, will follow up culture results - Constipation - Abdominal pain, RLQ: appendicitis ruled out on CT scan History of Present Illness Reason for Consultation: Medical Management Attending Physician: Shakir Stanley MD History of Present Illness Ms. Birmingham is a 29 y/o female with PCOS, T2DM, HTN, and S/P Cholecystectomy was admitted for abdominal pain. She reports the pain has remained isolated to this RLQ and sharp with movement but mostly cramping. She states this does not feel similar to her PCOS. She does not report a change in her pain since admission. She does endorse diarrhea and urinary symptoms. States she does not have any sick contacts. Initial imaging had difficulty visualizing some of the appendix but repeat CT suggest no underlying appendicial etiology. She does endorse diarrhea but does appear to have a relative amount of stool in the colon and per chart appears to have IBS so maybe a possible etiology of her pain. As well UCx is growing gram neg bacilli and group b beta strep. In regards to chronic conditions, her BP is stable and her T2DM is uncontrolled with an A1c of 8.8. She takes Metformin and Trulicity at home. Allergies Allergy/AdvReac Type Severity Reaction Status Date / Time hydromorphone Allergy Intermediate HIVES Verified 03/29/19 18:08 adhesive Allergy Mild REDNESS AT Verified 03/29/19 18:08 SITE/ITCHY latex Allergy Mild RASH Verified 03/29/19 18:08 soy Allergy Unknown hives, Verified 03/29/19 18:08 swelling to face. Home Medications Home Medications Medication Instructions Recorded Confirmed Type metformin ER 500 mg 1,000 mg PO BID #360 tab 11/26/18 04/25/19 Rx tablet,extended release 24 hr omeprazole 40 mg capsule,delayed 40 mg PO BID #60 cap 11/26/18 04/25/19 Rx release albuterol sulfate HFA 90 2 puffs INHALATION Q4H PRN gm 01/25/19 04/25/19 History mcg/actuation aerosol inhaler dulaglutide 1.5 mg/0.5 mL 1.5 mg SUBCUT WEEKLY ml 01/25/19 04/25/19 History subcutaneous pen injector ergocalciferol (vitamin D2) 50,000 50,000 units PO WEEKLY cap 01/25/19 04/25/19 History unit capsule hydroxyzine HCl 50 mg tablet 50 mg PO HS PRN 01/25/19 04/25/19 History atorvastatin 10 mg PO HS 03/09/19 04/25/19 History ferrous sulfate 325 mg PO HS 03/09/19 04/25/19 History fluoxetine [Prozac] 40 mg PO HS 03/09/19 04/25/19 History lisinopril 5 mg PO HS 03/09/19 04/25/19 History magnesium oxide 400 mg PO HS 03/09/19 04/25/19 History spironolactone 100 mg PO HS 03/09/19 04/25/19 History buspirone 15 mg tablet 15 mg PO BID 04/05/19 04/25/19 History dicyclomine 10 mg PO Q6H PRN 04/25/19 04/25/19 History norethindrone (contraceptive) 0.35 mg PO HS 04/25/19 04/25/19 History [Elana-BE] amoxicillin-pot clavulanate 1 tab PO BID #14 tab 04/26/19 Rx [Augmentin] oxycodone-acetaminophen [Percocet] 1 - 2 tab PO .every 4-6 hours PRN 04/26/19 Rx #10 tab Patient History Medical History Type 2 diabetes mellitus, uncontrolled Obesity, morbid, BMI 50 or higher Insomnia IBS (irritable bowel syndrome) Hypertension Hypercholesterolemia with hyperglyceridemia GERD without esophagitis Depression Anxiety History of cellulitis right thigh History of methicillin resistant Staphylococcus aureus infection History of pneumonia Suicide ideation Surgical History History of cholecystectomy History of incision and drainage Family History Mother Depression Anxiety Methicillin resistant Staphylococcus aureus infection Father Obstructive sleep apnea Sleep apnea Methicillin resistant Staphylococcus aureus infection Brother Obstructive sleep apnea Sleep apnea Methicillin resistant Staphylococcus aureus infection Family/Other Asthma Methicillin resistant Staphylococcus aureus infection Grandmother (Maternal) Diabetes Heart disease Grandfather (Paternal) Diabetes Lung cancer Other Coronary heart disease Social History Preferred Language: Uzbek Communication Ability: Effective Visual Impairment: No Limitations Hearing Ability: Normal Beliefs That Will Affect Care: None marital status: Single Current Living Situation: Alone current occupational status: employed current occupation: Daycare in [place] Feels Safe at Home: Yes Smoking Status: Never smoker Second Hand Exposure: No ; Hx Alcohol Use: Yes Alcohol Intake Frequency: Rarely Hx Substance Use: No Childhood Exposure to Second-Hand Smoke: No caffeine: Yes Dental Care, Regularly: Yes Physical Activity Frequency: 1-2 Times per Week Seatbelt Use: always Review of Systems 2 Constitutional: no fever and no chills Ear, Nose, Mouth, Throat: no nasal congestion, no sore throat and no hoarseness Respiratory: no cough and no dyspnea Cardiovascular: no chest pain, no palpitations, no lightheadedness and no edema Gastrointestinal: + abdominal pain, + nausea and + diarrhea/loose stools; no vomiting and no constipation Genitourinary: + dysuria Musculoskeletal: no body aches Integumentary: no rash Physical Exam Constitutional: WD/WN, vitals as above no acute distress and not ill appearing Eyes: + anicteric sclerae Neck: trachea midline Respiratory: normal respiratory effort, lungs clear to auscultation Cardiovascular: RRR, no murmur, no edema Gastrointestinal (Abdomen): Inspection/Auscultation: normal bowel sounds Percussion/Palpation: + abdomen tender (RLQ) and abdomen soft; no guarding and abdomen not rigid Musculoskeletal: Head/Neck/Chest: normocephalic and head atraumatic Skin: no rashes, warm and dry Neurologic: moves all extremities Psychiatric: A+Ox3, euthymic affect Results & Data Vital Signs (Past 12 Hours) Vital Signs Temp Pulse Resp BP Pulse Ox 04/26/19 06:58 36.8 C 80 18 122/82 94 PG Care Time/CCT Total # of Minutes Spent Total Time Spent with Patient: Total time spent is greater than 50% in coordination of care (as documented) at patient's floor/unit and/or counseling patient:
--- NOTE | 2019-04-26 15:31 | Discharge Summary ---
Date of Service April 26, 2019 Admission HPI Per Admitting Provider This is a 29y F with a PMH of DM2, morbid obesity, HTN, and PCOS who presents to the [facility] ED on 04/25/19 with complaints of right sided lower abdominal pain and nausea. Patient reports her pain started yesterday and was crampy in nature. She has a history of PCOS and has had pain from cysts in the past, but states that this feels different. She reports that the pain was yesterday was intermittent and she was able to eat at [employer] for dinner. Today the pain and nausea continued to persist and worsen, prompting her to be evaluated in the ED. She endorses chills, diarrhea (starting today, almost hourly), bloating, and lightheadedness. She states the pain is primarily in the right lower abdomen, rating it a 6/10 in severity. She denies fevers, constipation, shortness of breath, vomiting, or chest pain. Patient was evaluated in the ED last month for abdominal pain, but she said that the pain at that time was diffuse and she was diagnosed with a UTI. She does have a UA from today with + leukocytes, WBC, and bacteria. She has feelings of needing to urinate, but denies dysuria or actual urinary frequency. Workup in the ED show a WBC of 15.[address] scan revealed an inadequate evaluation of the appendix due to the tip being obscured by fluid, & also showed some bladder wall thickening. Patient states she last ate spaghe[employer]io's around 11am today. Principal Diagnosis Urinary tract infection Abdominal pain Irritable bowel syndrome Diabetes type 2 Discharge Exam awake/alert Constitutional well developed and well nourished; no acute distress Respiratory normal respiratory effort Gastrointestinal (Abdomen) Inspection/Auscultation: abdomen not distended Percussion/Palpation: + abdomen tender (mildly tenderness to palpation in lower middle to RLQ ) and abdomen soft Discharge Data Allergies Allergy/AdvReac Type Severity Reaction Status Date / Time hydromorphone Allergy Intermediate HIVES Verified 03/29/19 18:08 adhesive Allergy Mild REDNESS AT Verified 03/29/19 18:08 SITE/ITCHY latex Allergy Mild RASH Verified 03/29/19 18:08 soy Allergy Unknown hives, Verified 03/29/19 18:08 swelling to face. Consultations 04/25/19 16:40 ED Decision to Admit Stat 04/25/19 16:54 Consult Hospitalist Routine Ordered Studies 04/25/19 14:51 CT abd pelvis IV con only Stat 04/26/19 07:07 CT abd pelvis oral and IV con Routine Hospital Course (1) Urinary tract infection: This is a 29y F with a PMH of DM2, morbid obesity, IBS, HTN, and PCOS who presented to the [facility] ED on 04/25/19 with complaints of intermittent right sided lower abdominal pain and nausea. Per her report pain is crampy in nature and different from her typical PCOS pain from cysts. Work up in the ED revealed a WBC of 15.9, + UA, and CT a/p that was an inadequate evaluation of the appendix as the tip was obscured by fluid. On exam patient's pain was not definitively localized to the RLQ. The patient was evaluated by surgery and she was admitted under observation for ongoing monitoring. She was kept NPO with IVF and started on IV zosyn. On 04/26/19 patient still endorsed some abdominal pain, exam unchanged, but her nausea improved. A CT a/p was obtained with both oral and IV contrast, which ultimately showed no acute intra-abdominal process or appendicitis. WBC downtrended to 6. Patient's diet was advanced as tolerated without issues. Patient's abdominal pain was managed. Pharmacy helped manage her diabetic medication during her hospitalization. Urine culture growing gram negative bacilli and group b beta strep. We spoke with pharmacy and medicine who were agreeable to transitioning from IV zosyn to complete a course of oral augmentin. She was instructed to follow up with her PCP this week for follow up and to ensure her urine culture is sensitive to augmentin. On 04/26/19 the patient was deemed stable to discharge to home. Total Time Total Time Spent Total Time Spent (In Minutes): 15 Discharge Plan Discharge Items Patient Disposition: Home - Self-Care Reason For Visit: RLQ ABD PAIN Discharge Diagnosis: abdominal pain and urinary tract infection Activity: Resume your previous activity Lifting: Gradually increase as tolerated Bathing: No limitations Exercise/Sports: Gradually increase as tolerated Driving/Machine Use: No limitations Non-emergency contact: Primary Care Provider Call non-emergency contact if: you have any medication questions, your symptoms worsen, your pain is not controlled, your pain is worsening, your pain is unusual for you, you have a fever, your temperature is above 101.5, your wound has increased redness, your wound has increased drainage and your wound pain has increased Follow-up/Referrals: Shakir Stanley MD [Surgeon] - (You do not need to follow up with Dr. Stanley unless you have a surgical concern. Please call your PCP to follow up for your urinary tract infection.) Kylie Salamanca DO [Primary Care Provider] - Diet: Regular Addtl Attending Provider Instructions: Please call your Primary Care Provider by tomorrow to schedule an appointment within the week and to make sure your urine culture comes back sensitive to the antibiotic you were discharged on. Please complete the full course of antibiotic for your urinary tract infection. You may take Tylenol or Ibuprofen over the counter if needed for pain Pending Studies at Discharge: No Stand-Alone Forms: My [facility] [employer], Smoking Cessation Medications and DC Order Prescriptions: New amoxicillin-pot clavulanate [Augmentin] 500-125 mg tablet 1 tab PO BID Qty: 14 RF: 0 Continued metformin 500 mg tablet extended release 24 hr 1,000 mg PO BID Qty: 360 RF: 3 omeprazole 40 mg capsule,delayed release(DR/EC) 40 mg PO BID Qty: 60 RF: 5 buspirone 15 mg tablet 15 mg PO BID RF: 0 albuterol sulfate 90 mcg/actuation HFA aerosol inhaler 2 puffs inhalation Q4H PRN (Reason: Shortness Of Breath Or Wheezing) RF: 0 ergocalciferol (vitamin D2) 50,000 unit capsule 50,000 units PO WEEKLY RF: 0 hydroxyzine HCl 50 mg tablet 50 mg PO HS PRN (Reason: Anxiety) RF: 0 dulaglutide 1.5 mg/0.5 mL pen injector 1.5 mg subcut WEEKLY RF: 0 fluoxetine [Prozac] 40 mg capsule 40 mg PO HS RF: 0 atorvastatin 10 mg tablet 10 mg PO HS RF: 0 spironolactone 100 mg tablet 100 mg PO HS RF: 0 magnesium oxide 400 mg (241.3 mg magnesium) tablet 400 mg PO HS RF: 0 lisinopril 5 mg tablet 5 mg PO HS RF: 0 ferrous sulfate 325 mg (65 mg iron) tablet,delayed release (DR/EC) 325 mg PO HS RF: 0 norethindrone (contraceptive) [Elana-BE] 0.35 mg tablet 0.35 mg PO HS RF: 0 dicyclomine 10 mg capsule 10 mg PO Q6H PRN (Reason: Abdominal Pain/IBS) RF: 0 Discharge Orders: Discharge Order (Routine); Ordered 04/26/19 Ordered By: [place]/Other Patient Handouts: Amoxicillin Trihydrate Clavulanate Potassium Oral tablet, UTI Admission Data Admit Date/Time: 04/25/19 16:54 Attending Provider: Shakir Stanley Admit Provider: Shakir Stanley Primary Care Provider: Kylie Salamanca Other Providers: Shakir Stanley
[2019-04-26 15:41] VITALS: BP 100/66; PULSE 68; TEMP 98.1; O2SAT 95
[2019-04-26] MEDS ORDERED: ATORVASTATIN 10 MG TAB PO SCH (21:00)
[2019-04-27] MEDS ORDERED: LISINOPRIL 10 MG TAB PO SCH (09:00)
== END 2019-04-26 18:36 | disposition home or self-care (01) ==
LOC: ED 14:21 → 3N 14:21